=== PATIENT | male | born 1950 | race Caucasian/White ===

== ENCOUNTER 2017-06-16 10:23 | Emergency (ER) | payer OTHER ==
[2017-06-16 10:52] VITALS: BMI 25.8
[2017-06-16 11:46] LABS: URINE APPEARANCE CLEAR; URINE BILIRUBIN NEGATIVE (NEGATIVE); URINE BLOOD 2+ (NEGATIVE); URINE COLOR YELLOW; URINE GLUCOSE (UA) NEGATIVE (NEGATIVE); URINE KETONE NEGATIVE (NEGATIVE); URINE NITRITE NEGATIVE (NEGATIVE); URINE PROTEIN NEGATIVE (NEGATIVE); URINE UROBILINOGEN NEGATIVE mg/dL (0.2-1.0)
[2017-06-16 11:52] LABS: URINE MUCUS RARE; URINE RBC 11 /hpf (0-3); URINE WBC <1 /hpf (3-5)
[2017-06-16 12:05] LABS: BASOPHIL 0.4 % (0-2.0); EOSINOPHIL 0.8 % (0-4.5); MCHC 33.7 g/dl (32.0-35.9); MEAN PLT VOLUME 7.9 fl (7.5-11.1); NEUTROPHILS 73.8 % (42.8-82.8); PLATELET COUNT 222 K/MM3 (134-434); RDW 12.9 % (11.9-15.9); WHITE BLOOD COUNT 10.4 K/mm3 (4.0-10.0)
--- NOTE | 2017-06-16 12:24 | PDOC ---
History of Present Illness - General Chief Complaint: Urinary Problem Stated Complaint: URINARY RETENTION Time Seen by Provider: 06/16/17 10:57 History Source: Patient Exam Limitations: No Limitations - History of Present Illness Initial Comments: 06/16/17 12:19 66M with no reported PMH ("pretty healthy" last physical exam in 1998) presents with urinary retention since June 13 with on/off dribbling for the past 2 months. Patient is in severe pain in lower abdomen and has only been able to excrete minimal amounts of urine by sitting in a few inches of hot water the bathtub and splashing his groin. Also complains of constipation for which he took a laxative. Past History - Past Medical History Allergies/Adverse Reactions: Allergies Allergy/AdvReac Type Severity Reaction Status Date / Time No Known Allergies Allergy Verified 06/16/17 10:52 Home Medications: Ambulatory Orders Tamsulosin HCl [Flomax] 0.4 mg PO DAILY #30 cap.er.24h 06/16/17 COPD: No Other medical history: patient DENIES MEDICAL HX - Suicide/Smoking/Psychosocial Hx Smoking History: Current every day smoker Number of Cigarettes Smoked Daily: 10 Information on smoking cessation initiated: No Hx Alcohol Use: No Drug/Substance Use Hx: No Review of Systems - Review of Systems Able to Perform ROS?: Yes Is the patient limited Bulgarian proficient: No Constitutional: No: Symptoms Reported HEENTM: No: Symptoms Reported Respiratory: No: Symptoms reported Cardiac (ROS): No: Symptoms Reported ABD/GI: Yes: Abdominal Distended : Yes: See HPI Musculoskeletal: No: Symptoms Reported Integumentary: No: Symptoms Reported *Physical Exam - Vital Signs Last Vital Signs Temp Pulse Resp BP Pulse Ox 97.8 F 79 18 143/90 98 06/16/17 10:49 06/16/17 10:49 06/16/17 10:49 06/16/17 10:49 06/16/17 10:49 - Physical Exam General Appearance: Yes: Nourished, Appropriately Dressed, Moderate Distress HEENT: positive: EOMI, LILIANE Respiratory/Chest: positive: Lungs Clear, Normal Breath Sounds. negative: Chest Tender, Respiratory Distress Cardiovascular: positive: Regular Rhythm, Regular Rate, S1, S2 Gastrointestinal/Abdominal: positive: Normal Bowel Sounds, Tenderness ( suprapubic) Neurologic: positive: Fully Oriented, Alert, Other (Anxious/nervous/verbose) ED Treatment Course - LABORATORY CBC & Chemistry Diagram: 06/16/17 11:26 06/16/17 11:26 - ADDITIONAL ORDERS Additional order review: Laboratory Results 06/16/17 11:26 Urine Color Yellow Urine Appearance Clear Urine pH 5.0 Ur Specific [place] 1.019 Urine Protein Negative Urine Glucose (UA) Negative Urine Ketones Negative Urine Blood 2+ H Urine Nitrite Negative Urine Bilirubin Negative Urine Urobilinogen Negative Urine RBC 11 Urine WBC <1 Urine Mucus Rare 06/16/17 11:26 RBC 5.11 MCV 95.0 MCHC 33.7 RDW 12.9 MPV 7.9 Neutrophils % 73.8 Lymphocytes % 14.9 Monocytes % 10.1 Eosinophils % 0.8 Basophils % 0.4 Medical Decision Making - Medical Decision Making 06/16/17 12:43 66M with no pmh presents with urinary retention for 3 days. lkabs, lyteds and UA ordered as well as Levy catheter. 1100mL urines collected. No UTI on UA. Paged Dr. Maldonado Urologist to discuss case/get appointment 06/16/17 13:26 Dr. Maldonado recommended we start the patient on Flomax 0.4mg 30 tabs once a day and discharging the patient with the Levy and having him call his office on Monday. 06/16/17 13:35 Patient discharged with precautions, appointment and prescription. *DC/Admit/Observation/Transfer Diagnosis at time of Disposition: Urinary retention due to benign prostatic hyperplasia - Discharge Dispostion Disposition: HOME Condition at time of disposition: Improved Admit: No - Prescriptions Prescriptions: Tamsulosin HCl [Flomax] 0.4 mg PO DAILY #30 cap.er.24h - Referrals Referrals: Joshua Maldonado MD [Staff Physician] - - Patient Instructions Printed Discharge Instructions: Benign Prostatic Hyperplasia, Benign Prostatic Hyperplasia (Alternative Therapy), Men With Enlarge Prostates Who Self-manage Their Lower Urinary Tract Sympto Additional Instructions: Call Dr. Maldonado on Monday to Schedule your appointment with him. Prescription for 0.4 Flomax once a day Keep the Levy catheter in until appointment with Dr. Maldonado. Come back to the Emergency Room for any new, worsening or concerning symptom.
[2017-06-16 12:29] LABS: ALBUMIN 4.1 g/dl (3.4-5.0); ANION GAP 7 (8-16); BILIRUBIN,TOTAL 0.9 mg/dL (0.2-1.0); CALCIUM 9.2 mg/dL (8.5-10.1); CO2 26 mmol/L (21-32); CREATININE 1.3 mg/dL (0.7-1.3); GLUCOSE,RANDOM 106 mg/dL (74-106); TOT PROT 7.3 g/dl (6.4-8.2)
[2017-06-16 12:33] LABS: ALK PHOS 90 U/L (45-117); SGPT/ALT 27 U/L (12-78)
[2017-06-16 12:35] LABS: SGOT/AST 35 U/L (15-37)
--- NOTE | 2017-06-16 12:43 | PDOC ---
Attending Attestation - Resident Resident Name: Yung Valle - ED Attending Attestation I have performed the following: I have examined & evaluated the patient, The case was reviewed & discussed with the resident, I agree w/resident's findings & plan, Exceptions are as noted - HPI HPI: 06/16/17 12:40 66y M no pmhx presents with urinary retention. The pt has been having difficulty urinating since holloween, usually just dribbles of urine and requiring a hot water bath to make it easier to urinate. The pt also endorses having increasing urination at night the past month. denies any fever/chills, dysuira, hematuria. no known prostate problems but pt states he has not seen a doctor in many years. 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
[2017-06-16] MEDS ORDERED: TAMSULOSIN HCL 0.4 MG CAP.ER.24H (FP) PO ONE (13:27)
[2017-06-16] MEDS ORDERED: TAMSULOSIN HCL 0.4 MG CAP.ER.24H (FP) ONE (13:38)
[2017-06-16 13:43] LABS: URINE LEUK ESTERASE Negative (NEGATIVE)
[2017-06-16 13:44] VITALS: BP 130/78; PULSE 70; TEMP 98
== END 2017-06-16 13:44 | disposition home or self-care (01) ==
LOC: JER 10:23
PROC: 0T9B70Z Drainage of Bladder with Drainage Device, Via Natural or Artificial Opening (ICD-10-PCS; principal; 2017-06-16)
DX: N40.1 Benign prostatic hyperplasia with lower urinary tract symptoms (principal); R33.8 Other retention of urine; F17.210 Nicotine dependence, cigarettes, uncomplicated
CPT/HCPCS: 36415; 51702; 80053; 81003; 81015; 85025; 99283-25

== ENCOUNTER 2017-06-23 20:31 | Emergency (ER) | payer OTHER ==
--- NOTE | 2017-06-23 20:38 | PDOC ---
Rapid Medical Evaluation Time Seen by Provider: 06/23/17 20:33 Medical Evaluation: Allergies Allergy/AdvReac Type Severity Reaction Status Date / Time No Known Allergies Allergy Verified 06/16/17 10:52 06/23/17 20:35 I have performed a brief in -person evaluation of this patient. The patient presents with a chief complaint of: Hematuria. Pt had "urine catheter" due to urine retention place on 06/16/2017 from the ER. Pt currently on Flomax (since 06/16/2017) Pt will see Dr. Arzola on Monday06/27/2017 at 1630hrs). This am, urine "was dark" and transitioned to hematuria this evening. Pt denies n/v, f/c, abd pain/ flank pain. Pertinent physical exam findings: L/S CTAB Abd NT, ND I have ordered the following: UA, U culture The patient will proceed to the ED for further evaluation.
[2017-06-23 20:44] VITALS: BP 130/79; PULSE 91; TEMP 98.4; BMI 25.8
[2017-06-23 20:49] LABS: URINE APPEARANCE CLOUDY; URINE BILIRUBIN NEGATIVE (NEGATIVE); URINE BLOOD 3+ (NEGATIVE); URINE COLOR RED; URINE GLUCOSE (UA) NEGATIVE (NEGATIVE); URINE KETONE NEGATIVE (NEGATIVE); URINE NITRITE POSITIVE (NEGATIVE); URINE UROBILINOGEN NEGATIVE mg/dL (0.2-1.0)
[2017-06-23 20:50] LABS: URINE PROTEIN 2+ (NEGATIVE)
[2017-06-23 20:53] LABS: URINE BACTERIA RARE /hpf (NONE SEEN); URINE MUCUS RARE; URINE RBC 485; URINE WBC 165; YEAST FEW
[2017-06-23] MEDS ORDERED: SULFAMETHOXAZOLE/TRIMETHOPRIM 800MG/160MG D.S. TABLET PO ONE (21:38)
--- NOTE | 2017-06-23 21:40 | PDOC ---
History of Present Illness - General Chief Complaint: Urinary Problem Stated Complaint: BLOOD IN URINE Time Seen by Provider: 06/23/17 20:33 History Source: Patient - History of Present Illness Initial Comments: 06/24/17 00:14 66M presents with blood in his reyes bag. He was in our ER on 06/16 for urinary retention with f/u with Dr. Maldonado with whom he has an appointment on Monday. Patient compains of dark red blood in catheter, suprapubic pain, believes catheter is clogged. 06/24/17 00:17 Past History - Past Medical History Allergies/Adverse Reactions: Allergies Allergy/AdvReac Type Severity Reaction Status Date / Time No Known Allergies Allergy Verified 06/23/17 20:39 Home Medications: Ambulatory Orders Tamsulosin HCl [Flomax] 0.4 mg PO DAILY #30 cap.er.24h 06/16/17 Sulfamethoxazole/Trimethoprim [Bactrim Ds -] 1 tab PO BID #14 tablet 06/23/17 COPD: No Disorders: Yes - Suicide/Smoking/Psychosocial Hx Smoking History: Current every day smoker Have you smoked in the past 12 months: Yes Number of Cigarettes Smoked Daily: 10 Information on smoking cessation initiated: No Hx Alcohol Use: No Drug/Substance Use Hx: No Review of Systems - Review of Systems Able to Perform ROS?: Yes Constitutional: No: Symptoms Reported HEENTM: No: Symptoms Reported Respiratory: No: Symptoms reported ABD/GI: No: Symptoms Reported : Yes: Dysuria. No: Symptoms Reported Musculoskeletal: No: Symptoms Reported *Physical Exam - Vital Signs Last Vital Signs Temp Pulse Resp BP Pulse Ox 98.4 F 91 H 18 130/79 98 06/23/17 20:37 06/23/17 20:37 06/23/17 20:37 06/23/17 20:37 06/23/17 20:37 - Physical Exam General Appearance: Yes: Nourished, Appropriately Dressed, Mild Distress HEENT: positive: EOMI, LILIANE Neck: negative: Tender Respiratory/Chest: positive: Lungs Clear, Normal Breath Sounds, Plerual Rub. negative: Chest Tender Cardiovascular: positive: Regular Rhythm, Regular Rate, S1, S2 Gastrointestinal/Abdominal: positive: Normal Bowel Sounds, Other (suprapubic discomfort.) Male Genitalia: positive: other (Catheter in place) Neurologic: positive: Fully Oriented, Alert, Normal Mood/Affect ED Treatment Course - ADDITIONAL ORDERS Additional order review: Laboratory Results 06/23/17 20:40 Urine Color Red Urine Appearance Cloudy Urine pH 6.0 Ur Specific [place] 1.010 Urine Protein 2+ H Urine Glucose (UA) Negative Urine Ketones Negative Urine Blood 3+ H Urine Nitrite Positive Urine Bilirubin Negative Urine Urobilinogen Negative Urine WBC (Auto) 165 Urine RBC (Auto) 485 Ur Epithelial Cells Rare Urine Bacteria Rare Urine Mucus Rare Urine Yeast Few Medical Decision Making - Medical Decision Making 06/24/17 00:20 66M here for hematuria in cath bag. Catheter flushed easily. UA positive for nitrites. patient treated with bactrim Cultures pending. Bedside ultrasound performed, bladder empty. 06/24/17 00:22 Sent home with bactrim prescription Follow up with Joel on Monday. *DC/Admit/Observation/Transfer Diagnosis at time of Disposition: UTI (urinary tract infection) due to urinary indwelling Reyes catheter, Urinary retention due to benign prostatic hyperplasia - Discharge Dispostion Disposition: HOME Condition at time of disposition: Improved Admit: No - Prescriptions Prescriptions: Sulfamethoxazole/Trimethoprim [Bactrim Ds -] 1 tab PO BID #14 tablet - Referrals - Patient Instructions Printed Discharge Instructions: How to Care for Your Reyes Catheter -- Male, DI for Urinary Tract Infection (UTI) Additional Instructions: Follow up with your appointment with Dr. Maldonado. Come back to the ER for any new, worsening or concerning symptom, such as urine retention or persistent bleeding. - Post Discharge Activity
--- NOTE | 2017-06-23 21:44 | PDOC ---
Attending Attestation - Resident Resident Name: Yung Valle - ED Attending Attestation I have performed the following: I have examined & evaluated the patient, The case was reviewed & discussed with the resident - HPI HPI: 06/23/17 21:42 Pt comes with UTI and reyes catheter in place. He was in our ER a couple days back; reyes cath was placed for urinary retention and pt developed nitrite positive UTI. We will flush the reyes catheter, as there are blood clots within , and pt will be sent home with bactrim DS and flomax. Follow with Dr Owens of urology. - Physicial Exam PE: 06/23/17 23:10 Afebrile; no flank tenderness; no abd tenderness. Pt is upset and anxious. Pt has no residual urine in his bladder once the reyes was flushed. He is not retaining urine. Agree with resident exam. - Medical Decision Making 06/24/17 01:27 D/C home with reyes catheter and leg bag; antibiotics (Bactrim DS) follow with Dr. Dhillon Continue the flomax that was given to you.
[2017-06-23] MEDS ORDERED: SULFAMETHOXAZOLE/TRIMETHOPRIM 800MG/160MG D.S. TABLET ONE (21:52)
[2017-06-23 22:47] LABS: URINE LEUK ESTERASE 1+ (NEGATIVE)
--- NOTE | 2017-06-26 08:01 | PDOC ---
Patient Follow-up (Call Back) - Post ED Follow - Up Condition at time of discharge: Improved Disposition at time of original discharge: HOME Reason for Call Back: Abnwl. Microbiology (Patient with positive urine culture, on bactrim, awaiting sensitivity.)
== END 2017-06-23 23:20 | disposition home or self-care (01) ==
LOC: JER 20:31
PROC: 3C1ZX8Z Irrigation of Indwelling Device using Irrigating Substance, External Approach (ICD-10-PCS; principal; 2017-06-23)
DX: T83.098A Other mechanical complication of other urinary catheter, initial encounter (principal); F17.210 Nicotine dependence, cigarettes, uncomplicated
CPT/HCPCS: 53899; 81003; 81015; 87086; 87186; 99281-25

== ENCOUNTER 2017-06-28 01:55 | Emergency (ER) | payer OTHER ==
[2017-06-28] MEDS ORDERED: LIDOCAINE HCL 2% JELLY 10 ML CARTRIDGE ONE (02:02)
--- NOTE | 2017-06-28 02:21 | PDOC ---
History of Present Illness - General Chief Complaint: Urinary Problem Stated Complaint: URINARY PROBLEM Time Seen by Provider: 06/28/17 02:19 - History of Present Illness Initial Comments: 06/28/17 02:19 CHIEF COMPLAINT: urinary problem HISTORY OF PRESENT ILLNESS: 66y M no PMH presents to ED with urinary retention. Patient has been having difficulty urinating for a couple weeks now and was recently seen in our ED and a reyes catheter was placed. The patient then returned with "dark urine" and was The pt also endorses having increasing urination at night the past month. denies any fever/chills, dysuira, hematuria. Patient reports that he had been having 'problems with ejaculating recently" and did mention that to Dr. Maldonado. PAST MEDICAL HISTORY: Denies past medical history FAMILY HISTORY: Denies SOCIAL HISTORY: Denies tobacco, alcohol, illicit drug use. SURGICAL HISTORY: Denies ALLERGIES: No known drug allergies REVIEW OF SYSTEMS General/Constitutional: Denies fever or chills. Gastrointestinal: Denies nausea, vomiting, diarrhea or constipation. Genitourinary: urinary retention Musculoskeletal: Denies neck or back pain. PHYSICAL EXAM General Appearance: Well-appearing, appropriately dressed. No apparent distress. HEENT: EOMI, PERRLA. No conjunctival pallor. No photophobia, scleral icterus. Respiratory/Chest: Lungs CTAB. Cardiovascular: RRR. S1, S2. Gastrointestinal/Abdominal: Distended bladder w/ tenderness on palpation. Normal bowel sounds. Abdomen soft, non-distended. No tenderness or rebound tenderness. No organomegaly, pulsatile mass, guarding, hernia, hepatomegaly, splenomegaly. Musculoskeletal/Extremities: Normal inspection. FROM of all extremities, normal capillary refill. No tenderness to extremities, pedal edema, swelling, erythema or deformity. Integumentary: Appropriate color, dry, warm. 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 Fully oriented, alert. Appropriate mood/affect. Motor strength 5/5. No appreciable EOM palsy, facial droop or sensory deficit. 06/28/17 06:49 Past History - Past Medical History Allergies/Adverse Reactions: Allergies Allergy/AdvReac Type Severity Reaction Status Date / Time No Known Allergies Allergy Verified 06/28/17 02:20 Home Medications: Ambulatory Orders Tamsulosin HCl [Flomax] 0.4 mg PO DAILY #30 cap.er.24h 06/16/17 Sulfamethoxazole/Trimethoprim [Bactrim Ds -] 1 tab PO BID #14 tablet 06/23/17 COPD: No Disorders: Yes - Suicide/Smoking/Psychosocial Hx Smoking History: Current every day smoker Have you smoked in the past 12 months: Yes Number of Cigarettes Smoked Daily: 10 Hx Alcohol Use: No Drug/Substance Use Hx: No Medical Decision Making - Medical Decision Making 06/28/17 04:11 66y M no PMH presents to ED with urinary retention. -reyes placed, 1100cc urine drained Patient cultures from previous indicate sensitivity to Bactrim. Will give one dose to patient here in ED as he is overdue for second dose of the third day. Urine leg bag placed, indwelling catheter will remain until patient f/u with urology. Advised patient to f/u with urology today and of signs and symptoms for return to ER; patient verbalized understanding and agrees to plan. *DC/Admit/Observation/Transfer Diagnosis at time of Disposition: Urinary retention due to benign prostatic hyperplasia - Discharge Dispostion Disposition: HOME Condition at time of disposition: Guarded Admit: No - Referrals Referrals: Joshua Maldonado MD [Staff Physician] - - Patient Instructions Printed Discharge Instructions: DI for Benign Prostatic Hyperplasia, DI for Urinary Retention in Men Additional Instructions: Please follow up with Dr. Maldonado tomorrow as discussed for further evaluation of your enlarged prostate and persistent urinary retention. We recommend that you complete the course of antibiotics as prescribed; however please discuss this with Dr. Maldonado. Continue taking the Flomax as prescribed. If you develop any fever, chills, nausea, vomiting, diarrhea, or worsening urinary pain, please return to the ER. - Post Discharge Activity
[2017-06-28 02:26] VITALS: BP 108/79; PULSE 81; TEMP 98.1; BMI 25.8
[2017-06-28 03:10] LABS: URINE APPEARANCE CLEAR; URINE BILIRUBIN NEGATIVE (NEGATIVE); URINE BLOOD 1+ (NEGATIVE); URINE COLOR LTYELLOW; URINE GLUCOSE (UA) NEGATIVE (NEGATIVE); URINE KETONE NEGATIVE (NEGATIVE); URINE NITRITE NEGATIVE (NEGATIVE); URINE PROTEIN NEGATIVE (NEGATIVE); URINE UROBILINOGEN NEGATIVE mg/dL (0.2-1.0)
[2017-06-28 03:15] LABS: URINE BACTERIA RARE /hpf (NONE SEEN); URINE MUCUS RARE; URINE RBC 11; URINE WBC 3
[2017-06-28] MEDS ORDERED: SULFAMETHOXAZOLE/TRIMETHOPRIM 800MG/160MG D.S. TABLET PO ONE (03:44)
[2017-06-28] MEDS ORDERED: SULFAMETHOXAZOLE/TRIMETHOPRIM 800MG/160MG D.S. TABLET ONE (03:53)
[2017-06-28 10:24] LABS: URINE LEUK ESTERASE Negative (NEGATIVE)
== END 2017-06-28 04:16 | disposition home or self-care (01) ==
LOC: JER 01:55 → SUPCPDRO 01:55 → JER 04:16
PROC: 0T9B70Z Drainage of Bladder with Drainage Device, Via Natural or Artificial Opening (ICD-10-PCS; principal; 2017-06-28)
DX: N40.1 Benign prostatic hyperplasia with lower urinary tract symptoms (principal); R33.8 Other retention of urine; F17.210 Nicotine dependence, cigarettes, uncomplicated
CPT/HCPCS: 51702; 81003; 81015; 87086; 99282-25